=== PATIENT | male | born 1970 ===

== ENCOUNTER → 2019-02-07 20:51 | Outpatient (ROUT) | payer OTHER, SELFPAY ==
[2019-02-07 21:29] LABS: Add Manual Diff / Slide Review NO; Basophils Absolute Auto 0 /uL (0-100); Basophils Percent Auto 0.7 % (0-2); Eosinophils Absolute Auto 100 /uL (0-450); Eosinophils Percent Auto 1.9 % (2-4); Hematocrit 47.9 % (41-53); Hemoglobin 16.2 g/dL (13.5-17.5); Lymphocytes Absolute Auto 1100 /uL (1100-4500); Lymphocytes Percent Auto 26.7 % (25-40); Mean Corpuscular HGB Conc 33.9 % (30-36); Mean Corpuscular Hemoglobin 31.1 PG (26-34); Mean Corpuscular Volume 91.9 fL (80-100); Monocytes Absolute Auto 300 /uL (0-900); Monocytes Percent Auto 7.9 % (3-14); Neutrophils Absolute Auto 2500 /uL (1500-7000); Neutrophils Percent Auto 62.8 % (50-75); Platelet Count 108 X10^3/uL (150-400)
[2019-02-07 21:54] LABS: Alanine Aminotransferase 39 IU/L (21-72); Albumin 4.4 g/dL (3.5-5.0); Albumin Globulin Ratio 1.5 (1.0-2.8); Alkaline Phosphatase 56 U/L (38-126); Aspartate Aminotransferase 29 IU/L (17-59); BUN Creatinine Ratio 25.7 (6-22); Bilirubin Total 0.7 mg/dL (0.2-1.3); Blood Urea Nitrogen 18 mg/dL (9-20); Calcium 9.9 mg/dL (8.4-10.2); Carbon Dioxide 28 mmol/L (22-32); Chloride 102 mmol/L (98-107); Cholesterol 188 mg/dL (140-199); Estimated Glomerular Filt Rate > 60.0 mL/min (>60); Glucose 102 mg/dL (70-100); HDL Cholesterol 41 mg/dL (40-60); HEMOLYSIS < 15 (0-50); LDL Cholesterol Calculated 120 mg/dL (<100); Potassium 4.1 mmol/L (3.4-5.1); Sodium 140 mmol/L (137-145); Total Protein 7.4 g/dL (6.3-8.2); Triglycerides 133 mg/dL (35-150)
[2019-02-07 22:22] LABS: Prostate Specific Antigen 0.442 ng/mL (0.10-4.00)
[2019-02-07 22:41] LABS: HIV 1 and 2 Antibody NEGATIVE (NEGATIVE); Hep C Virus Ab w/Reflex Quant NEGATIVE s/c (NEGATIVE)
[2019-02-07 22:46] LABS: Hemoglobin A1C% w Est Avg Glu 4.9 % (4.0-6.0)
[2019-02-10 13:17] LABS: RPR Screen Nonreactive (Nonreactive)
[2019-02-10 16:00] LABS: HSV 2 IGG AB < 0.90 index (< 0.90); HSV1IGG < 0.90 index (< 0.90)
[2019-02-10 20:17] LABS: ANA Screen, IFA Positive (Negative)
== END ==
PROVIDERS: Visit Provider Family Medicine
DX: R53.1 Weakness (principal); K57.90 Diverticulosis of intestine, part unspecified, without perforation or abscess without bleeding; Z00.00 Encounter for general adult medical examination without abnormal findings
CPT/HCPCS: 36415; 80053; 80061; 83036; 84153; 84443; 85025; 86038; 86592; 86695; 86696; 86703; 86803; 87491; 87591

== ENCOUNTER → 2019-02-22 00:13 | Outpatient (ROUT) | payer OTHER, SELFPAY ==
[2019-02-22 04:39] LABS: Urine N gonorrhoeae NOT DETECTED
[2019-02-22 04:42] LABS: Urine Chlamydia NOT DETECTED
[2019-02-26 13:06] LABS: (tTG) Ab, IgA < 1 U/mL
== END ==
PROVIDERS: Visit Provider Family Medicine
DX: K58.9 Irritable bowel syndrome, unspecified (principal); R10.9 Unspecified abdominal pain; R53.83 Other fatigue; R63.0 Anorexia; Z11.3 Encounter for screening for infections with a predominantly sexual mode of transmission; Z11.4 Encounter for screening for human immunodeficiency virus [HIV]
CPT/HCPCS: 36415; 82784; 83516; 86001; 86003; 86160; 86225; 86255; 87491; 87591